=== PATIENT | male | born 1970 | race Caucasian/White ===

== ENCOUNTER → 2017-10-09 | Outpatient (CLI) | payer OTHER | LOC: CIMAGING 08:06 | DX: Z13.6 Encounter for screening for cardiovascular disorders (principal) | CPT/HCPCS: 75571-PO ==

== ENCOUNTER → 2017-10-18 | Outpatient (CLI) | payer MEDICAID | LOC: GIMAGING 16:42 | PROVIDERS: ATTEND Registered Nurse | DX: M79.644 Pain in right finger(s) (principal) | CPT/HCPCS: 73140-PO ==